=== PATIENT | female | born 1965 | race Caucasian/White ===

== ENCOUNTER → 2017-07-27 | Outpatient (CLI) | payer BC ==
--- NOTE | 2017-07-29 18:18 | Diagnostic Imaging Report ---
Bilateral screening mammogram 2D views with tomosynthesis. The current study was also evaluated with a Computer Aided Detection (CAD) system. INDICATION: Screening. No current complaints stated on the questionnaire. COMPARISON: 07/22/2016. FINDINGS: The breasts are composed of scattered fibroglandular densities. Occasional benign-appearing calcifications seen. Allowing for technique and positional differences, no suspicious change is seen. IMPRESSION: No significant change. ACR BI-RADS Category 2: Benign findings. Result letter will be mailed to the patient. Note: At least 10% of breast cancer is not imaged by mammography. Dictated on workstation # [id number]
== END ==
LOC: RAD 11:25
PROVIDERS: ATTEND Obstetrics & Gynecology
DX: Z12.31 Encounter for screening mammogram for malignant neoplasm of breast (principal)
CPT/HCPCS: 77067

== ENCOUNTER → 2018-07-28 | Outpatient (CLI) | payer BC ==
--- NOTE | 2018-07-28 18:19 | Diagnostic Imaging Report ---
INDICATION: Routine screening. COMPARISON: Prior study from 07/27/2017 and 07/22/2016. EXAMINATION: 2D and 3D bilateral screening mammography was performed with CAD. The current study was also evaluated with a Computer Aided Detection (CAD) system. FINDINGS: Scattered fibronodular densities are identified, bilaterally. A nodular density in the outer left breast mid depth is stable. There is a new focal density in the lateral portion of the left breast retroareolar region only seen on the CC view. This is located approximately 4 cm from the nipple. No corresponding density on the MLO view is seen. Additional views of this area are recommended. Right breast is stable. There are no suspicious calcifications. The axillae are unremarkable. IMPRESSION: BI-RADS 0. Left breast density. Additional views, including spot compression and rolled CC views, are recommended. Dictated by: Dictated on workstation # [id number]
== END ==
LOC: RAD 10:58
PROVIDERS: ATTEND Obstetrics & Gynecology
DX: Z12.31 Encounter for screening mammogram for malignant neoplasm of breast (principal); R92.8 Other abnormal and inconclusive findings on diagnostic imaging of breast
CPT/HCPCS: 77067

== ENCOUNTER → 2018-08-09 | Outpatient (CLI) | payer BC ==
--- NOTE | 2018-08-09 18:55 | Diagnostic Imaging Report ---
Indication: Left breast density. The study is performed for further evaluation. Correlation is made with a diagnostic mammogram performed earlier the same day and a screening mammogram from 07/28/2018. Sonographic interrogation of the outer left breast was performed. There is a tiny cluster of cysts at the 2 o'clock location of the left breast 5 cm from the nipple. These in aggregate measure approximately 9 x 4 x 6 mm. It is conceivable that this accounts for the mammographic density. No solid mass is seen. No suspicious abnormality is identified. Impression: BI-RADS 2 Tiny cluster of cysts at the 2 o'clock location of the left breast 5 cm from the nipple, perhaps accounting for the mammographic density. No concerning abnormality is seen. Patient may return to routine annual screening mammography. ACR BI-RADS Category 2: Benign findings. Result letter will be mailed to the patient. Note: At least 10% of breast cancer is not imaged by mammography. Dictated by: Dictated on workstation # [id number]
--- NOTE | 2018-08-09 19:23 | Diagnostic Imaging Report ---
INDICATION: Left breast density. Patient presents for additional views. Correlation is made with recent screening study from 07/28/2018. Unilateral left 2-D and 3-D diagnostic mammography was performed including spot compression CC, roll CC as well as conventional 9 degree lateral view. Scattered fibronodular densities are noted. There is mild residual nodularity in the outer left breast on the roll lateral CC view. No other densities are seen on spot compression nor conventional mediolateral view. No suspicious calcifications are seen. Impression: BI-RADS 0. Mild residual nodularity in the outer left breast. Further evaluation with ultrasound is recommended and will be performed today. ACR BI-RADS Category 0: Incomplete. (Needs additional imaging evaluation). Result letter will be mailed to the patient. Note: At least 10% of breast cancer is not imaged by mammography. Dictated by: Dictated on workstation # [id number]
== END ==
LOC: RAD 13:12
PROVIDERS: ATTEND Obstetrics & Gynecology
DX: N60.02 Solitary cyst of left breast (principal)
CPT/HCPCS: 76642

== ENCOUNTER → 2019-08-01 | Outpatient (CLI) | payer BC ==
--- NOTE | 2019-08-01 13:27 | Diagnostic Imaging Report ---
INDICATION: Routine screening. Comparison is made with prior mammograms from 07/28/2018 and 07/27/2017. 2-D and 3-D bilateral screening mammography was performed. The current study was also evaluated with a Computer Aided Detection (CAD) system. 3-D tomosynthesis was also performed and reviewed. FINDINGS: Scattered fibroglandular densities are identified bilaterally. Benign-appearing nodular densities in the outer portion of the left breast appear stable. No new mass or malignant-appearing microcalcifications are seen. Axillae are unremarkable. IMPRESSION: No mammographic features suspicious for malignancy are identified. ACR BI-RADS Category 2: Benign findings. Result letter will be mailed to the patient. Note: At least 10% of breast cancer is not imaged by mammography. Dictated by: Dictated on workstation # [id number]
== END ==
LOC: RAD 11:12
PROVIDERS: ATTEND Obstetrics & Gynecology
DX: Z12.31 Encounter for screening mammogram for malignant neoplasm of breast (principal)
CPT/HCPCS: 77067

== ENCOUNTER → 2020-09-12 | Outpatient (CLI) | payer BC ==
--- NOTE | 2020-09-13 11:15 | Diagnostic Imaging Report ---
INDICATION: Routine screening. COMPARISON: 08/01/2019 and 07/28/2018. TECHNIQUE: 2D and 3D bilateral screening mammography was performed with CAD. FINDINGS: Scattered fibroglandular densities are identified bilaterally. The benign nodular density in the outer left breast is stable. No new mass or malignant appearing microcalcifications are seen. The axillae are unremarkable. IMPRESSION: No mammographic features suspicious for malignancy are identified. ACR BI-RADS Category 2: Benign findings. Result letter will be mailed to the patient. Note: At least 10% of breast cancer is not imaged by mammography. Dictated by: Dictated on workstation # [id number]
== END ==
LOC: RAD 15:30
PROVIDERS: ATTEND Obstetrics & Gynecology
DX: Z12.31 Encounter for screening mammogram for malignant neoplasm of breast (principal)
CPT/HCPCS: 77063; 77067

== ENCOUNTER → 2021-09-16 | Outpatient (CLI) | payer BC ==
--- NOTE | 2021-09-16 10:20 | Diagnostic Imaging Report ---
INDICATION: Routine screening. Comparison is made with prior mammogram from 09/12/2020 and 08/01/2019. 2-D and 3-D bilateral screening mammography was performed with CAD. Scattered fibroglandular densities are identified bilaterally. Benign-appearing nodule in the outer left breast appears stable. No new mass or malignant-appearing microcalcifications are seen. Axillae are unremarkable. IMPRESSION: No mammographic features suspicious for malignancy are identified. BI-RADS Category 2 ACR BI-RADS Category 2: Benign findings. Result letter will be mailed to the patient. Note: At least 10% of breast cancer is not imaged by mammography. Dictated by: Dictated on workstation # [id number]
== END ==
LOC: RAD 09:25
PROVIDERS: ATTEND Obstetrics & Gynecology
DX: Z12.31 Encounter for screening mammogram for malignant neoplasm of breast (principal)
CPT/HCPCS: 77063; 77067

== ENCOUNTER → 2022-10-20 | Outpatient (CLI) | payer BC ==
--- NOTE | 2022-10-20 12:23 | Diagnostic Imaging Report ---
Indication: Routine screening. Comparison is made with prior mammogram 09/16/2021 and 09/12/2020. 2-D and 3-D bilateral screening mammography was performed with CAD. CAD is utilized. The current study was also evaluated with a Computer Aided Detection (CAD) system. Scattered fibroglandular densities are identified bilaterally. Previously noted nodular density in the outer left breast has significantly reduced in size, perhaps diminution of a cyst. No spiculated mass or malignant-appearing microcalcifications are seen. There are benign calcifications bilaterally. Axillae are unremarkable. IMPRESSION: BI-RADS Category 2 No mammographic features suspicious for malignancy are identified. ACR BI-RADS Category 2: Benign findings. Result letter will be mailed to the patient. Note: At least 10% of breast cancer is not imaged by mammography. Dictated by: Dictated on workstation # [id number]
== END ==
LOC: RAD 10:32
PROVIDERS: ATTEND Obstetrics & Gynecology
DX: Z12.31 Encounter for screening mammogram for malignant neoplasm of breast (principal)
CPT/HCPCS: 77063; 77067